=== PATIENT | female | born 1955 | race Caucasian/White ===

== ENCOUNTER → 2018-03-06 | Outpatient (CLI) | payer OTHER ==
[~2018-03-06] MED LIST: ACETAMINOPHEN-1 EAC1 PO; CENTRUM SILVER1 EAC4 PO; CO Q-10100 MG PO; GINKGO BILOBA120 M1 PO; PROZAC20 MG PO; SENNA8.6 MG PO
== END ==
LOC: PET 08:44
DX: R91.8 Other nonspecific abnormal finding of lung field (principal)

== ENCOUNTER 2018-03-16 05:38 | Day surgery (SDC) | payer OTHER ==
[~2018-03-16] VITALS: Ht 165.1 cm; Wt 70.3 kg
--- NOTE | ~2018-03-16 | P ---
[facility] [place] [address] PROCEDURE REPORT Name: CHARLES ZAVALAGERALD Joanna Room #: DEP [facility].#: [id number] Admission: 03/16/18 Attend Phys: Mark Keene MD Discharge: 03/16/18 Date of : 51 Report #: [id number] THIS REPORT FOR: //name// CC: Jess Keene DATE OF SERVICE: 03/16/2018 PROCEDURE: Fiberoptic bronchoscopy under general endotracheal anesthesia with endobronchial ultrasound-guided fine needle aspirates of level 7 lymph node x 8 and level 11L area x 6 with brushings of the left upper lobe, transbronchial biopsies of the left upper lobe and lavage of the left upper lobe. INDICATION: Left upper lobe mass with mediastinal adenopathy and likely metastatic cancer. ASA classification class 2. PROCEDURE NOTATION: After discussing risks and benefits of planned procedure with the patient and family, desired to proceed. After obtaining informed consent, she was taken to the operating room 3 under the Anesthesia Service and was placed on general endotracheal anesthesia. An 8.0 endotracheal tube was inserted by the Anesthesia Service. Once accomplished, white light bronchoscope was passed through the endotracheal tube until the distal trachea was seen. Airways were surveyed. FINDINGS: Mainstem, lobar, segmental and subsegmental bronchi were explored bilaterally as able. The right-sided structures appeared normal. Minor anatomic variation of the 2 segmental bronchi in the right upper lobe. Otherwise, normal on the right. Left-sided structures were difficult to ascertain due to significant edema in the left mainstem bronchus and difficulty passing the bronchoscope. Lower lobe airways appeared patent. Upper lobe, particularly the apical segment significantly narrowed. Using the cytology brush, several cytologic brushings were obtained in the area of abnormality in the left upper lobe. This bronchoscope was then removed and replaced with endobronchial ultrasound device. Lymph nodes were then assessed as best able. The 11R lymph node measured 10 mm, 10R lymph node 8 mm. No significant 4R L nodes were seen. Level 7 had multiple lymph nodes, largest measuring 10 mm. Left hilar area had a 19 mm mass or lymph node. Eight passes of the level 7 lymph node were obtained. Both coming from 2 different areas in the left mainstem bronchus and also from the right mainstem bronchus, which were likely 2 separate nodes in the level 7 area. Rapid onsite pathology did show some lymphocytes. The 10L area was then sampled x 6 using different 25 and 22 gauge needles. When this was completed, scope was removed and the regular bronchoscope was then reinserted and several forcep biopsies were obtained in the right upper lobe. It was difficult to see in this area distal to where the forceps were biopsying due to obstruction. The patient tolerated the procedure well. No noted complications. [address] [address] PROCEDURE REPORT Name: GERALD ASCENCIO Room #: DEP [facility] Wilfrido#: [id number] Admission: 03/16/18 Attend Phys: Mark Keene MD Discharge: 03/16/18 Date of : 51 Report #: [id number] IMPRESSION: Left upper lobe mass and mediastinal adenopathy, likely metastatic cancer. PLAN: Await pathology. <ELECTRONICALLY SIGNED> By: Mark Keene MD 03/28/18 1029 1037 0011 Mark Keene MD /nt
[2018-03-16 07:26] LABS: HEMATOCRIT 41.4 % (37.0-47.0); HEMOGLOBIN 14.2 gm/dL (12.0-15.0); MCH 30.2 pg (26.0-34.0); MCHC 34.2 g/dL (28.0-37.0); MCV 88.2 fL (80.0-100.0); RBC 4.7 mil/uL (4.20-5.00); RDW 13.3 % (10.5-14.5); WBC 5.4 thou/uL (4.0-11.0)
[2018-03-16 08:22] VITALS: BP 146/87
== END 2018-03-16 11:59 | disposition home or self-care (01) ==
LOC: OR 05:38 → TBA 05:38 → OR 06:49
PROVIDERS: Internal Medicine Pulmonary Disease
DX: J98.09 Other diseases of bronchus, not elsewhere classified (principal); R59.0 Localized enlarged lymph nodes; K21.9 Gastro-esophageal reflux disease without esophagitis; F32.9 Major depressive disorder, single episode, unspecified; F41.9 Anxiety disorder, unspecified; Z87.891 Personal history of nicotine dependence; Z98.890 Other specified postprocedural states; Z90.710 Acquired absence of both cervix and uterus; Z79.899 Other long term (current) drug therapy
CPT/HCPCS: 50010; 62110; 62900

== ENCOUNTER → 2018-03-25 | Outpatient (CLI) | payer OTHER ==
--- NOTE | ~2018-03-25 | PATH ---
[facility] [address] [address] PATHOLOGY RPT PROCEDURE Name: CHARLES ZAVALANUZHAT Joanna Room #: REG [facility] M.R.#: [id number] Admission: 03/25/18 Date of : 51 Discharge: Report #: [id number] Path Case #: [id number] [facility] Accession Number: [id number] . 01 Material submitted: . MALACHI BIOPSY . 01 Clinical history: . None provided . 02 Diagnosis: Lung, left upper lobe, biopsy: - POSITIVE FOR MALIGNANCY; MODERATELY DIFFERENTIATED ADENOCARCINOMA PRESENT (PLEASE SEE COMMENT). QRQ/03/26/2018 . 02 Comment: Co-review: Dr. Sachin Kincaid . These findings are communicated to Dr. Mark Keene at approximately 1:15 p.m. on 03/26/18. (IUV:mgr; 03/26/18) . 02 Electronically signed: . Adriana Donovan MD, Pathologist NPI- [id number] . 01 Gross description: . Received in formalin labeled "Townsend Zavala Nuzhat, biopsy MALACHI," are multiple (more than 10) fragments of dark baker soft tissue measuring 2.6 x 0.4 x 0.1 cm in aggregate dimensions. The specimen is filtered and entirely submitted in a biopsy bag in cassette A1. (TSD; 03/25/2018) TOB/TOB . 02 CPT . 298128 Performed at: [address] [id number] MD Jayden Ortiz MD Phone: [phone] Performed at: [address] [id number] MD Adriana Donovan MD Phone: [phone]
--- NOTE | ~2018-03-25 | P ---
[facility] [place] [address] PROCEDURE REPORT Name: GERALD ASCENCIO Room #: REG [facility]#: [id number] Admission: 03/25/18 Attend Phys: Mark Keene MD Discharge: Date of : 51 Report #: [id number] THIS REPORT FOR: //name// CC: Jess Keene DATE OF SERVICE: 03/25/2018 PROCEDURE: Fiberoptic bronchoscopy with endobronchial biopsies of left upper lobe disease as well as endobronchial brushings of the left upper lobe and subcarinal fine needle aspirates with 19-gauge needle. INDICATION: Lung mass, failure to confirm diagnosis with prior biopsies. ASA classification class 3. PROCEDURE NOTATION: After discussing risks, benefits of planned procedure with the patient, she desired to proceed. After obtaining informed consent, she was brought to [facility] where she has been placed on continuous cardiopulmonary monitoring and supplemental oxygen. She was then given 2% lidocaine nebulized to anesthetize the upper respiratory tract. Once accomplished, she received conscious sedation, a total of 5 mg of Versed and 100 mcg of fentanyl were titrated during the procedure to provide adequate sedation. Once complete, bronchoscope was passed through an oral bite block until the vocal cords were visualized. 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 1% lidocaine was instilled in the vocal cords, then subsequently in the trachea to provide topical anesthesia. The bronchoscope was passed in the trachea and airways were surveyed. FINDINGS: As described above the left vocal cord was paralyzed prior to proceeding. The right-sided structures appeared normal. Left mainstem bronchus was significantly narrowed with difficulty passing the bronchoscope into the airway. Significant endobronchial disease predominated in the upper lobe. Several cytologic brushings and forceps biopsies were obtained in this area, also subcarinal 19 gauge fine needle aspirates were obtained and sent in formalin for histopathology. The patient tolerated well. No noted complications. Some minor bleeding noted that stopped at the end of procedure. IMPRESSION: Lung mass with mediastinal subcarinal lymph node, status post bronchoscopy with the above procedure. PLAN: Await pathology. [address] [address] PROCEDURE REPORT Name: GERALD ASCENCIO Room #: REG [facility]#: [id number] Admission: 03/25/18 Attend Phys: Mark Keene MD Discharge: Date of : 51 Report #: [id number] In addition, due to the patient's persistent pain, a fentanyl patch was added at 12 mcg, changed every 72 hours. <ELECTRONICALLY SIGNED> By: Mark Keene MD 03/28/18 1029 [id number] Mark Keene MD /nt
== END | disposition home or self-care (01) ==
LOC: CATH 11:47
DX: D14.32 Benign neoplasm of left bronchus and lung (principal); R91.8 Other nonspecific abnormal finding of lung field; F32.9 Major depressive disorder, single episode, unspecified; Z98.890 Other specified postprocedural states; Z90.710 Acquired absence of both cervix and uterus; Z87.891 Personal history of nicotine dependence; Z79.899 Other long term (current) drug therapy